=== PATIENT | male | born 1970 | race Caucasian/White ===

== ENCOUNTER 2017-03-13 08:33 | Emergency (ER) | payer OTHER ==
[~2017-03-13] VITALS: Ht 188 cm; Wt 118.0 kg
[2017-03-13 08:42] VITALS: TEMP 37; Ht 188 cm; Wt 118.0 kg
[2017-03-13 08:46] VITALS: O2SAT 96
[2017-03-13] MEDS ORDERED: SODIUM CHLORIDE 0.9% 1000ML 1,000 ML IV STA (08:49)
[2017-03-13] MEDS ORDERED: KETOROLAC TROMETHAMINE 30 MG/ML VIAL IV STA (08:49)
--- NOTE | 2017-03-13 08:51 | EMERGENCY ROOM VISIT NOTE ---
History Report prepared by Jesse: Ramon Huizar Under the Supervision of: Dr. Darwin Padilla M.D. First contact with patient: 08:39 Chief Complaint: CHEST PAIN Stated Complaint: CHEST PAINS History of Present Illness The patient is a 46 year old male who presents to the Emergency Room with complaints of left sided chest pain that began 3 hours ago. He rates his pain moderate in severity. He states that he has been sick for about 1 week with a cough with clear sputum. He woke up this morning with the pain. His pain is exacerbated with movement, but not with breathing. He denies any shortness of breath, pain in his legs, or swelling in his legs. He also denies any fevers. He denies any history of blood clots. He denies any recent trauma or strains. Source of History: patient Onset: 3 hours ago Position: chest (left) Symptom Intensity: moderate Quality: sharp Timing: constant Modifying Factors (Worsening): movement Associated Symptoms: + cough, No fevers, No SOB Note: He denies any leg swelling or leg pain. Review of Systems See HPI for pertinent positives & negatives. A total of 10 systems reviewed and were otherwise negative. Past Medical & Surgical Medical Problems: (1) No Known Active Medical Problems Old medical records were reviewed. Nurse's notes were reviewed and I agree with. Family History Patient reports no known family medical history. Social History Smoking Status: Never Smoker Smokeless Tobacco Use: No Drug Use: none Marital Status: Housing Status: lives with family Occupation Status: employed Current/Historical Medications Scheduled Azithromycin (Zithromax Z-Avery), 0 PO UD Sertraline (Zoloft), 25 MG PO DAILY Sertraline (Zoloft), 100 MG PO DAILY Allergies Coded Allergies: Sulfa Antibiotics (Unverified Allergy, Unknown, "BROKE OUT", 03/13/17) Physical Exam Vital Signs Date Time Temp Pulse Resp B/P (MAP) Pulse Ox O2 Delivery O2 Flow Rate FiO2 03/13/17 10:06 66 18 130/75 96 Room Air 03/13/17 09:31 64 20 127/80 95 Room Air 03/13/17 08:49 68 03/13/17 08:46 96 Room Air 03/13/17 08:42 37.0 61 18 156/93 96 Room Air Physical Exam General: Non-ill appearing middle aged male in no acute distress. HEENT: Normal cephalic atraumatic. Pupils are equal round and reactive to light. Extraocular movements are intact. Oropharynx is pink with moist mucous membranes. No swelling of the mouth lips or tongue. Neck: Supple with a midline trachea. No meningeal signs or stiffness, no JVD or bruits. No Stridor. Chest: Clear to auscultation bilaterally. No wheezes or rhonchi. No increased work of breathing. No respiratory distress. Pain with movement or palpation to the left chest. Heart: regular rate and rhythm. Abdomen: Soft nontender, nondistended without rebound guarding or rigidity. Extremities: No cyanosis clubbing or edema. No calf tenderness or assymetry Spine/Back. Non tender to palpation. No CVA tenderness Skin: Good turgor without rashes. Neurologic exam: Cranial nerves two through 12 are intact. Motor and sensation are intact and symmetrical throughout. Medical Decision & Procedures ER Provider Diagnostic Interpretation: Radiology results as stated below per my review and radiologist interpretation: CHEST ONE VIEW PORTABLE HISTORY: 46 years-old Male CHEST PAIN acute atypical chest pain. Initial exam COMPARISON: None available TECHNIQUE: Portable upright AP view of the chest FINDINGS: Cardiac silhouette is upper limits of normal. There is mild right hemidiaphragmatic elevation. Lungs are mildly hypoinflated with bronchovascular crowding. No pneumothorax, pleural effusion or lobar airspace consolidation. Hazy bibasilar opacities suggest atelectasis. The bones are grossly intact. IMPRESSION: Mild hypoinflation with probable bibasilar atelectasis. No acute cardiopulmonary process. The above report was generated using voice recognition software. It may contain grammatical, syntax or spelling errors. Electronically signed by: Chapo Licea M.D. 03/13/2017 9:14 AM Dictated Date/Time: 03/13/2017 9:13 AM Laboratory Results 03/13/17 08:45 Red Blood Count 5.34, Mean Corpuscular Volume 85.2, Mean Corpuscular Hemoglobin 30.0, Mean Corpuscular Hemoglobin Concent 35.2, Mean Platelet Volume 9.7, Neutrophils (%) (Auto) 58.4, Lymphocytes (%) (Auto) 29.4, Monocytes (%) (Auto) 8.7, Eosinophils (%) (Auto) 2.2, Basophils (%) (Auto) 0.6, Neutrophils # (Auto) 4.00, Lymphocytes # (Auto) 2.02, Monocytes # (Auto) 0.60, Eosinophils # (Auto) 0.15, Basophils # (Auto) 0.04 03/13/17 08:45 Test 03/13/17 08:45 03/13/17 08:56 White Blood Count 6.86 K/uL (4.8-10.8) Red Blood Count 5.34 M/uL (4.7-6.1) Hemoglobin 16.0 g/dL (14.0-18.0) Hematocrit 45.5 % (42-52) Mean Corpuscular Volume 85.2 fL (80-100) Mean Corpuscular Hemoglobin 30.0 pg (25-34) Mean Corpuscular Hemoglobin Concent 35.2 g/dl (32-36) Platelet Count 218 K/uL (130-400) Mean Platelet Volume 9.7 fL (7.4-10.4) Neutrophils (%) (Auto) 58.4 % Lymphocytes (%) (Auto) 29.4 % Monocytes (%) (Auto) 8.7 % Eosinophils (%) (Auto) 2.2 % Basophils (%) (Auto) 0.6 % Neutrophils # (Auto) 4.00 K/uL (1.4-6.5) Lymphocytes # (Auto) 2.02 K/uL (1.2-3.4) Monocytes # (Auto) 0.60 K/uL (0.11-0.59) Eosinophils # (Auto) 0.15 K/uL (0-0.5) Basophils # (Auto) 0.04 K/uL (0-0.2) RDW Standard Deviation 39.2 fL (36.4-46.3) RDW Coefficient of Variation 12.6 % (11.5-14.5) Immature Granulocyte % (Auto) 0.7 % Immature Granulocyte # (Auto) 0.05 K/uL (0.00-0.02) Anion Gap 7.0 mmol/L (3-11) Est Creatinine Clear Calc Drug Dose 131.2 ml/min Estimated GFR () 110.7 Estimated GFR (Non- 95.5 BUN/Creatinine Ratio 16.1 (10-20) Calcium Level 9.6 mg/dl (8.5-10.1) Total Bilirubin 0.7 mg/dl (0.2-1) Direct Bilirubin 0.2 mg/dl (0-0.2) Aspartate Amino Transf (AST/SGOT) 17 U/L (15-37) Alanine Aminotransferase (ALT/SGPT) 25 U/L (12-78) Alkaline Phosphatase 74 U/L (45-117) Total Creatine Kinase 133 U/L (39-308) Creatine Kinase MB 1.2 ng/ml (0.5-3.6) Creatine Kinase MB Ratio 0.9 (0-3.0) Total Protein 7.6 gm/dl (6.4-8.2) Albumin 4.4 gm/dl (3.4-5.0) Lipase 100 U/L (73-393) Bedside D-Dimer 315 ng/mlFEU (0-450) Bedside Troponin I < 0.030 ng/ml (0-0.045) Laboratory studies as stated above per my review. Medications Administered Medications (Trade) Dose Ordered Sig/Dami Route Start Time Stop Time Status Last Admin Dose Admin Sodium Chloride 1,000 ml @ 999 mls/hr Q1H1M STAT IV 03/13/17 08:49 03/13/17 09:49 DC 03/13/17 08:59 999 MLS/HR Ketorolac Tromethamine (Toradol Inj) 30 mg NOW STAT IV 03/13/17 08:49 03/13/17 08:51 DC 03/13/17 09:00 30 MG Azithromycin (Zithromax Tab) 500 mg NOW ONCE PO 03/13/17 10:00 03/13/17 10:01 DC 03/13/17 09:55 500 MG ECG Indication: chest pain Rate (beats per minute): 65 Rhythm: normal sinus Findings: no acute ischemic change, no ectopy, other (Poor r-wave progression) Comparison ECG Date: no prior available Change: Second ECG results: Sinus bradycardia 58, no acute ischemic changes. No change when compared to prior ECG. ED Course 0839: Past medical records reviewed. The patient was evaluated in room A3, and a complete history and physical examination were performed. 0849: Ordered Toradol Inj 30 mg IV, Sodium Chloride 1000 ml @ 999 mls/hr IV 1000: Ordered Azithromycin 500 mg PO 1010: Upon reevaluation, the patient is resting. I discussed the results and treatment plan with him. He verbalized agreement of the treatment plan. The patient was discharged home. Medical Decision Differentials include, but are not limited to; pneumonia, cardiac disease, costochondritis, pneumothorax, pulmonary embolism, and electrolyte or metabolic abnormality. This patient comes in as described above. He has had a cough for the last week or so. He developed significant pain along the left lateral rib area and is focally tender with any movement and palpation. He has no significant respiratory symptoms. No trauma. He has no fever. EKG was obtained and shows no acute ischemic changes or ectopy. EKG #2 shows no change. EKG #1. Chest x- ray does not show pneumothorax or CHF or pneumonia. His d-dimer was negative and a low pretest probability study makes PE highly unlikely. IV access established and blood work was obtained. He was given Toradol 30 mg IV and feels significantly better. He has no white count or fever to suggest infection. I think this most likely is costochondritis and it may be from coughing. I will put him on azithromycin Z-Avery as he has had a prolonged cough and may potentially be pertussis. I will also encourage him use an anti- inflammatory such as ibuprofen 400 mg every 6 hours, take with food . he should return if: increasing pain, worsening of symptoms, fever or chills, any problems or concerns. He is happy with plan and discharged to home. Medication Reconcilliation Current Medication List: was personally reviewed by me Blood Pressure Screening Patient's blood pressure: Normal blood pressure Blood pressure disposition: Did not require urgent referral Impression Primary Impression: Left sided chest pain Additional Impression: Acute costochondritis Scribe Attestation The scribe's documentation has been prepared under my direction and personally reviewed by me in its entirety. I confirm that the note above accurately reflects all work, treatment, procedures, and medical decision making performed by me. Departure Information Dispostion Home / Self-Care Prescriptions Azithromycin (ZITHROMAX Z-AVERY) 250 Mg Tab 0 PO UD, #1 PKT Prov: Darwin Padilla M.D. 03/13/17 Referrals No Doctor, Assigned (PCP) Forms Call Back Authorization, HOME CARE DOCUMENTATION FORM, IMPORTANT VISIT INFORMATION Patient Instructions My [facility] Additional Instructions Rest. Drink plenty of fluids. Use azithromycin Z-Avery as directedantibiotic Use ibuprofen 400 mg every 6 hours, take with food May use [id number] cough medicine such as Robitussin-DM Return if: worsening of symptoms, shortness of breath, fever or chills, any new problems or concerns Follow-up with your doctor on Wednesday for recheck if not 100% better or return to the ER over the weekend at any point if symptoms worsen Problem Qualifiers
[2017-03-13 09:05] LABS: BASO % 0.6 %; BASO ABS # 0.04 K/uL (0-0.2); COMPLETE YES; EOS % 2.2 %; HEMATOCRIT 45.5 % (42-52); IG% 0.7 %; LYMPH % 29.4 %; LYMPH ABS # 2.02 K/uL (1.2-3.4); MEAN CELL VOLUME 85.2 fL (80-100); MEAN CORPUSCULAR HGB CONC 35.2 g/dl (32-36); MEAN PLATELET VOLUME 9.7 fL (7.4-10.4); MONO % 8.7 %; NEUT % 58.4 %; PLATELET COUNT 218 K/uL (130-400); RED BLOOD COUNT 5.34 M/uL (4.7-6.1); WHITE BLOOD COUNT 6.86 K/uL (4.8-10.8)
[2017-03-13 09:14] LABS: POINT OF CARE TROPONIN I < 0.030 ng/ml (0-0.045)
--- NOTE | 2017-03-13 09:16 | DIAGNOSTIC IMAGING REPORT ---
CHEST ONE VIEW PORTABLE HISTORY: 46 years-old Male CHEST PAIN acute atypical chest pain. Initial exam COMPARISON: None available TECHNIQUE: Portable upright AP view of the chest FINDINGS: Cardiac silhouette is upper limits of normal. There is mild right hemidiaphragmatic elevation. Lungs are mildly hypoinflated with bronchovascular crowding. No pneumothorax, pleural effusion or lobar airspace consolidation. Hazy bibasilar opacities suggest atelectasis. The bones are grossly intact. IMPRESSION: Mild hypoinflation with probable bibasilar atelectasis. No acute cardiopulmonary process. The above report was generated using voice recognition software. It may contain grammatical, syntax or spelling errors. Electronically signed by: Chapo Licea M.D. 03/13/2017 9:14 AM Dictated Date/Time: 03/13/2017 9:13 AM
[2017-03-13 09:17] LABS: BUN/CREATININE RATIO 16.1 (10-20); CALCIUM 9.6 mg/dl (8.5-10.1); CREATININE 0.94 mg/dl (0.60-1.40)
[2017-03-13 09:22] LABS: CKMB/CK RATIO 0.9 (0-3.0)
[2017-03-13] MEDS ORDERED: SERT25TA PO (09:47)
[2017-03-13] MEDS ORDERED: SERT-234 PO (09:47)
[2017-03-13] MEDS ORDERED: AZITTAB PO (09:50)
[2017-03-13] MEDS ORDERED: AZITHROMYCIN 250 MG TAB PO ONE (10:00)
[2017-03-13 10:06] VITALS: BP 130/75; PULSE 66; O2SAT 96
== END 2017-03-13 10:08 | disposition home or self-care (01) ==
LOC: C.EDB 08:34 → C.EDA 10:08
DX: R07.9 Chest pain, unspecified (principal); M94.0 Chondrocostal junction syndrome [Tietze]; Z79.899 Other long term (current) drug therapy